=== PATIENT | male | born 1985 | race Caucasian/White ===

== ENCOUNTER → 2016-09-24 | Outpatient (REF) | payer SELFPAY ==
[2016-09-24 09:47] LABS: #IMMOTILE SPERM COUNTED 12; #MOTILE SPERM COUNTED 4; % MOTILITY 25 (> 25%); SPERM ABNORMAL FORMS WBC'S NOTED; TOTAL # SPERM COUNTED 16 M/ml
== END ==
LOC: M LAB REF 09:22
PROVIDERS: ATTEND Obstetrics & Gynecology Obstetrics
DX: N46.9 Male infertility, unspecified (principal)

== ENCOUNTER → 2016-12-03 | Outpatient (REF) | payer BC, MEDICARE ==
[2016-12-03 10:46] LABS: % NORMAL FORMS < 4 % (>=4); IMMOTILITY 96 %; NON PROGRESSIVE MOTILITY (c) 4 %; PROGRESSIVE MOTILITY (a) 0 % (>=32); SPERM# 22.6 M/Ejac (>=39); TOTAL MOTILITY 4 % (>=40); TOTAL PROGRESSIVE SPERM 0 M/Ejac.
[2016-12-03 10:47] LABS: TOTAL FUNCTIONAL 0 M/Ejac.
== END ==
LOC: M SMT 07:04
PROVIDERS: ATTEND Nurse Practitioner Women's Health
DX: N46.11 Organic oligospermia (principal)

== ENCOUNTER → 2017-04-22 | Outpatient (REF) ==
[2017-04-22 12:36] LABS: ESTRADIOL 22.6 PG/ML (<39.8)
== END ==
LOC: M LAB REF 11:28
DX: Z79.899 Other long term (current) drug therapy (principal)

== ENCOUNTER → 2017-05-17 | Outpatient (REF) | payer BC ==
[2017-05-17 17:29] LABS: SEMEN APPEARANCE OPAQUE (OPAQUE)
[2017-05-17 17:30] LABS: SEMEN VISCOSITY LIQUID (LIQUID); SEMEN VOLUME 2.3 ml (4.0-5.0); SEMEN pH 8.5 (7.0-8.0); SPERM ABNORMAL FORMS OTHER (SPECIFIY); SPERM CONCENTRATION 12.5 M/ml (>=15.0); WBC CONCENTRATION <=1 M/ml (<=1 M/ml)
[2017-05-17 17:31] LABS: IMMOTILITY 96 %; NON PROGRESSIVE MOTILITY (c) 4 %; PROGRESSIVE MOTILITY (a) 0 % (>=32); TOTAL MOTILITY 4 % (>=40)
[2017-05-17 17:32] LABS: SPERM# 28.8 M/Ejac (>=39); TOTAL FUNCTIONAL 0 M/Ejac.; TOTAL PROGRESSIVE SPERM 0 M/Ejac.
[2017-05-17 17:39] LABS: % NORMAL FORMS < 4 % (>=4)
== END ==
LOC: M LAB REF 16:36
DX: N46.9 Male infertility, unspecified (principal)
CPT/HCPCS: 89320

== ENCOUNTER → 2017-07-10 | Outpatient (CLI) | payer BC | LOC: M RAD 16:32 | DX: R76.11 Nonspecific reaction to tuberculin skin test without active tuberculosis (principal) ==

== ENCOUNTER 2017-08-27 11:06 | Inpatient (IN) | payer SELFPAY, BC ==
[2017-08-27] MEDS: NS 1,000 ML IV ×2 (12:45→20:05)
[2017-08-27] MEDS: ONDANSETRON 4MG/2ML VIAL (J2405) IV (12:47)
[2017-08-27] MEDS: MORPHINE 4 MG/ML 1ML VIAL/SYRINGE (J2270) IV ×2 (12:47→21:29)
[2017-08-27 12:49] LABS: KETONE, URINE AUTO RFX 2+ mg/dL (NEGATIVE); LEUKOCYTE ESTERASE UR AUTO RFX NEGATIVE (NEGATIVE); MUCUS, URINE RFX SMALL (NEGATIVE); NITRITE, URINE AUTO RFX NEGATIVE (NEGATIVE); RBC, URINE AUTO RFX 3 /HPF (0-3); SPECIFIC GRAVITY UR AUTO RFX 1.026 (1.002-1.035); SQUAM EPITHELIAL CELL UR AURFX 0 /HPF (0-6); WBC, URINE AUTO RFX 0 /HPF (0-3)
[2017-08-27 13:04] LABS: BASO # 0.1 10^3/uL (0.0-0.2); BASO % 0.4 % (0.0-1.0); EOS # 0.1 10^3/uL (0.0-0.50); EOS % 0.5 % (0.0-3.0); HEMATOCRIT 47.8 % (42.0-52.0); HEMOGLOBIN 17.7 g/dl (13.5-17.5); IMMATURE GRANULOCYTE % 0.5 % (0-3.0); LYMPH # 1.2 10^3/uL (1.5-4.5); LYMPH % 8.1 % (24.0-44.0); MEAN CORPUSCULAR HEMOGLOBIN 34.8 pg (27.0-33.0); MEAN CORPUSCULAR VOLUME 93.9 fl (80.0-96.0); MONO # 0.9 10^3/uL (0.0-0.8); MONO % 6.2 % (0.0-5.0); NEUTROPHILS % 84.3 % (36.0-66.0); PLATELET COUNT, AUTOMATED 220 10^3/uL (150-450); RED BLOOD COUNT 5.09 10^6/uL (4.30-6.10); RED CELL DISTRIBUTION WIDTH 13.6 % (11.5-14.5); WHITE BLOOD COUNT 14.2 10^3/uL (4.0-10.0)
[2017-08-27 13:08] LABS: INR 0.85; PROTHROMBIN TIME 11.7 SECONDS (12.4-14.5)
[2017-08-27 13:30] LABS: ALBUMIN 3.3 GM/DL (3.2-5.2); ANION GAP 12 MEQ/L (8-16); BILIRUBIN,TOTAL 1.4 MG/DL (0.2-1.0); CARBON DIOXIDE LEVEL 23 MEQ/L (21-32); CHLORIDE LEVEL 96 MEQ/L (98-107); CREATININE FOR GFR 0.86 MG/DL (0.70-1.30); GLOMERULAR FILTRATION RATE > 60.0 (>60); GLUCOSE, FASTING 307 MG/DL (70-100); POTASSIUM SERUM 3.9 MEQ/L (3.5-5.1); SODIUM LEVEL 131 MEQ/L (136-145); TROPONIN I < 0.02 NG/ML (< 0.10)
[2017-08-27] MEDS: HYDROmorphone 2 MG TAB PO (13:30)
[2017-08-27] MEDS ORDERED: ISOVUE-370 76% 100ML VIAL (Q9967) As Ordered (13:32)
[2017-08-27 13:43] LABS: CK-MB VALUE MASS < 1.0 NG/ML (<3.6)
[2017-08-27] MEDS: HYDROmorphone HCL 1 MG/ML SYRINGE (J1170) IV ×2 (13:53→16:32)
[2017-08-27 14:01] LABS: ALBUMIN/GLOBULIN RATIO 0.77 (1.00-1.93); ALKALINE PHOSPHATASE 90 U/L (45-117); ALT/SGPT 89 U/L (12-78); AMYLASE 1274 U/L (25-115); AST/SGOT 68 U/L (7-37); BILIRUBIN,DIRECT 0.1 MG/DL (0.0-0.2); BLOOD UREA NITROGEN 9 MG/DL (7-18); CALCIUM LEVEL 8.4 MG/DL (8.5-10.1); CPK CREATINE PHOSPHOKINASE 74 U/L (39-308); LIPASE 22192 U/L (73-393); MB/CK RELATIVE INDEX 1.35 (< OR =4); TOTAL PROTEIN 7.6 GM/DL (6.4-8.2)
[2017-08-27 14:22] LABS: LACTIC ACID SEPSIS PROTOCOL 0.8 MMOL/L (0.4-2.0)
[2017-08-27] MEDS ORDERED: ACETAMINOPHEN TAB 650MG DOSE (2X325MG) PO (18:45)
[2017-08-27] MEDS: PERCOCET 5MG/325MG TAB PO ×2 (18:55→23:46)
[2017-08-27] MEDS ORDERED: DEXTROSE 50% 50 ML SYRINGE IV (19:30)
[2017-08-27] MEDS ORDERED: GLUCOSE 4 GM CHEW TABLET PO (19:30)
[2017-08-27] MEDS ORDERED: GLUCAGON FOR INJ 1 MG VIAL (J1610) SC (19:30)
[2017-08-27 20:11] LABS: BEDSIDE GLUCOSE 235 MG/DL (70-105)
[2017-08-27] MEDS: HumaLOG INSULIN (NovoLOG) PER UNIT SC (21:00)
[2017-08-27] MEDS: SENOKOT S TAB PO (21:27)
[2017-08-27] MEDS: HEPARIN SOD (PORCINE) 5000 UNITS/ML VIAL SC (21:28)
[2017-08-28] MEDS: MORPHINE 4 MG/ML 1ML VIAL/SYRINGE (J2270) IV ×4 (00:43→07:35)
[2017-08-28] MEDS: NS 1,000 ML IV ×4 (01:45→20:28)
[2017-08-28 05:20] LABS: HEMATOCRIT 52.6 % (42.0-52.0); HEMOGLOBIN 18.6 g/dl (13.5-17.5); MEAN CORPUSCULAR HEMOGLOBIN 33.6 pg (27.0-33.0); MEAN CORPUSCULAR HGB CONC 35.4 g/dl (32.0-36.5); MEAN CORPUSCULAR VOLUME 95.1 fl (80.0-96.0); PLATELET COUNT, AUTOMATED 250 10^3/uL (150-450); RED BLOOD COUNT 5.53 10^6/uL (4.30-6.10); RED CELL DISTRIBUTION WIDTH 14.5 % (11.5-14.5); WHITE BLOOD COUNT 16.5 10^3/uL (4.0-10.0)
[2017-08-28] MEDS: HEPARIN SOD (PORCINE) 5000 UNITS/ML VIAL SC (05:22)
[2017-08-28 07:07] LABS: ANION GAP 13 MEQ/L (8-16); CALCIUM LEVEL 5.7 MG/DL (8.5-10.1); CARBON DIOXIDE LEVEL 17 MEQ/L (21-32); CHLORIDE LEVEL 101 MEQ/L (98-107); CHOLESTEROL RISK RATIO 16.551 (<5); CREATININE FOR GFR 0.89 MG/DL (0.70-1.30); GLOMERULAR FILTRATION RATE > 60.0 (>60); GLUCOSE, FASTING 275 MG/DL (70-100); HDL CHOLESTEROL 29 MG/DL (>40); NON-HDL-C 451 MG/DL; SODIUM LEVEL 131 MEQ/L (136-145); TRIGLYCERIDES LEVEL 3496 MG/DL (<150)
[2017-08-28 07:09] LABS: CHOLESTEROL LEVEL 480 MG/DL (<200); POTASSIUM SERUM 6.3 MEQ/L (3.5-5.1)
[2017-08-28 07:12] LABS: BLOOD UREA NITROGEN 6 MG/DL (7-18)
[2017-08-28] MEDS ORDERED: HumaLOG INSULIN (NovoLOG) PER UNIT SC (07:30)
[2017-08-28] MEDS: ONDANSETRON 4 MG TAB (S0181) PO (07:46)
[2017-08-28 08:13] LABS: IONIZED CALCIUM 3.5 MG/DL (4.5-5.3)
[2017-08-28 08:15] LABS: PHOSPHORUS LEVEL 2.4 MG/DL (2.5-4.9)
[2017-08-28] MEDS: SENOKOT S TAB PO (08:26)
[2017-08-28] MEDS: CALCIUM GLUCONATE 1,000 MG in D5W MINI-BAG PLUS 100 ML IV ×4 (08:26→18:54)
[2017-08-28] MEDS: PERCOCET 5MG/325MG TAB PO ×5 (08:27→22:54)
[2017-08-28] MEDS: HumaLOG INSULIN (NovoLOG) PER UNIT SC ×3 (08:29→17:54)
[2017-08-28 08:44] LABS: POTASSIUM SERUM 4.5 MEQ/L (3.5-5.1)
[2017-08-28 08:51] LABS: ESTIMATED AVERAGE GLUCOSE 246 MG/DL (60-110); HEMOGLOBIN A1c 10.2 %
[2017-08-28] MEDS: ATORVASTATIN 20 MG TAB PO (10:40)
[2017-08-28] MEDS: ASPIRIN 81 MG ENTERIC TAB PO (10:41)
[2017-08-28] MEDS: LOSARTAN 50 MG TAB PO (10:41)
[2017-08-28] MEDS: IMIPENEM/CILASTATIN 500 MG in D5W MINI-BAG PLUS 100 ML IV ×3 (10:41→22:43)
[2017-08-28 12:06] LABS: BEDSIDE GLUCOSE 260 MG/DL (70-105)
[2017-08-28 12:37] LABS: IONIZED CALCIUM 3.7 MG/DL (4.5-5.3)
[2017-08-28 12:47] LABS: ANION GAP 11 MEQ/L (8-16); BLOOD UREA NITROGEN 6 MG/DL (7-18); CALCIUM LEVEL 6.6 MG/DL (8.5-10.1); CARBON DIOXIDE LEVEL 17 MEQ/L (21-32); CHLORIDE LEVEL 100 MEQ/L (98-107); CREATININE FOR GFR 0.76 MG/DL (0.70-1.30); GLOMERULAR FILTRATION RATE > 60.0 (>60); GLUCOSE, FASTING 269 MG/DL (70-100); SODIUM LEVEL 128 MEQ/L (136-145)
[2017-08-28 13:28] LABS: POTASSIUM SERUM 6.6 MEQ/L (3.5-5.1)
[2017-08-28] MEDS: HEPARIN SOD (PORCINE) 5000 UNITS/ML VIAL SQ ×2 (16:13→22:43)
[2017-08-28] MEDS: ONDANSETRON 4MG/2ML VIAL (J2405) IV (17:15)
[2017-08-28 17:41] LABS: CALCIUM LEVEL 6.5 MG/DL (8.5-10.1)
[2017-08-28 17:42] LABS: BEDSIDE GLUCOSE 284 MG/DL (70-105)
[2017-08-28 17:43] LABS: POTASSIUM SERUM 5.6 MEQ/L (3.5-5.1)
[2017-08-28] MEDS ORDERED: MORPHINE 4 MG/ML 1ML VIAL/SYRINGE (J2270) IV (19:15)
[2017-08-28 23:45] LABS: BEDSIDE GLUCOSE 252 MG/DL (70-105)
[2017-08-29] MEDS: NS 1,000 ML IV ×5 (02:08→21:46)
[2017-08-29] MEDS: IMIPENEM/CILASTATIN 500 MG in D5W MINI-BAG PLUS 100 ML IV ×4 (04:10→21:45)
[2017-08-29] MEDS: PERCOCET 5MG/325MG TAB PO ×6 (04:11→23:03)
[2017-08-29 05:46] LABS: HEMATOCRIT 51.6 % (42.0-52.0); HEMOGLOBIN 17.6 g/dl (13.5-17.5); MEAN CORPUSCULAR HEMOGLOBIN 32.5 pg (27.0-33.0); MEAN CORPUSCULAR HGB CONC 34.1 g/dl (32.0-36.5); MEAN CORPUSCULAR VOLUME 95.2 fl (80.0-96.0); PLATELET COUNT, AUTOMATED 212 10^3/uL (150-450); RED BLOOD COUNT 5.42 10^6/uL (4.30-6.10); RED CELL DISTRIBUTION WIDTH 14.6 % (11.5-14.5); WHITE BLOOD COUNT 11.7 10^3/uL (4.0-10.0)
[2017-08-29 05:47] LABS: IONIZED CALCIUM 3.8 MG/DL (4.5-5.3)
[2017-08-29 06:00] LABS: INR 1.11; PROTHROMBIN TIME 14.5 SECONDS (12.4-14.5)
[2017-08-29 06:23] LABS: ALBUMIN 2.6 GM/DL (3.2-5.2); ALKALINE PHOSPHATASE 70 U/L (45-117); ANION GAP 11 MEQ/L (8-16); BILIRUBIN,TOTAL 1.3 MG/DL (0.2-1.0); BLOOD UREA NITROGEN 10 MG/DL (7-18); CALCIUM LEVEL 6.7 MG/DL (8.5-10.1); CARBON DIOXIDE LEVEL 19 MEQ/L (21-32); CHLORIDE LEVEL 105 MEQ/L (98-107); GLOMERULAR FILTRATION RATE > 60.0 (>60); GLUCOSE, FASTING 223 MG/DL (70-100); LIPASE 2901 U/L (73-393); MAGNESIUM LEVEL 2.2 MG/DL (1.8-2.4); POTASSIUM SERUM 4.1 MEQ/L (3.5-5.1); SODIUM LEVEL 135 MEQ/L (136-145); TOTAL PROTEIN 6.3 GM/DL (6.4-8.2)
[2017-08-29 06:31] LABS: BEDSIDE GLUCOSE 169 MG/DL (70-105)
[2017-08-29 06:39] LABS: ALT/SGPT 45 U/L (12-78); AST/SGOT 38 U/L (7-37)
[2017-08-29] MEDS: HumaLOG INSULIN (NovoLOG) PER UNIT SC ×5 (06:40→20:01)
[2017-08-29] MEDS: HEPARIN SOD (PORCINE) 5000 UNITS/ML VIAL SQ ×3 (06:40→21:45)
[2017-08-29] MEDS: ASPIRIN 81 MG ENTERIC TAB PO (08:25)
[2017-08-29] MEDS: CALCIUM GLUCONATE 1,000 MG in D5W MINI-BAG PLUS 100 ML IV ×2 (08:29→10:17)
[2017-08-29] MEDS: ATORVASTATIN 20 MG TAB PO (08:30)
[2017-08-29] MEDS: LOSARTAN 50 MG TAB PO (08:30)
[2017-08-29 12:08] LABS: BEDSIDE GLUCOSE 229 MG/DL (70-105)
[2017-08-29 19:59] LABS: BEDSIDE GLUCOSE 317 MG/DL (70-105)
[2017-08-30] MEDS: PERCOCET 5MG/325MG TAB PO ×4 (03:01→20:16)
[2017-08-30] MEDS: IMIPENEM/CILASTATIN 500 MG in D5W MINI-BAG PLUS 100 ML IV ×4 (03:42→21:51)
[2017-08-30] MEDS: NS 1,000 ML IV ×4 (03:43→17:43)
[2017-08-30] MEDS: HEPARIN SOD (PORCINE) 5000 UNITS/ML VIAL SQ ×3 (05:30→20:16)
[2017-08-30 07:05] LABS: BASO % 0.4 % (0.0-1.0); EOS % 0.2 % (0.0-3.0); HEMATOCRIT 43.6 % (42.0-52.0); IMMATURE GRANULOCYTE % 0.4 % (0-3.0); LYMPH # 0.7 10^3/uL (1.5-4.5); LYMPH % 8.8 % (24.0-44.0); MEAN CORPUSCULAR HEMOGLOBIN 32.4 pg (27.0-33.0); MEAN CORPUSCULAR HGB CONC 33.5 g/dl (32.0-36.5); MEAN CORPUSCULAR VOLUME 96.7 fl (80.0-96.0); MONO # 0.9 10^3/uL (0.0-0.8); MONO % 10.8 % (0.0-5.0); NEUTROPHILS # 6.7 10^3/uL (1.8-7.7); NEUTROPHILS % 79.4 % (36.0-66.0); PLATELET COUNT, AUTOMATED 193 10^3/uL (150-450); RED BLOOD COUNT 4.51 10^6/uL (4.30-6.10); RED CELL DISTRIBUTION WIDTH 14.5 % (11.5-14.5); WHITE BLOOD COUNT 8.4 10^3/uL (4.0-10.0)
[2017-08-30 07:09] LABS: HEMOGLOBIN 14.6 g/dl (13.5-17.5)
[2017-08-30 07:15] LABS: INR 1.05; PROTHROMBIN TIME 13.9 SECONDS (12.4-14.5)
[2017-08-30 07:19] LABS: IONIZED CALCIUM 4.1 MG/DL (4.5-5.3)
[2017-08-30 07:31] LABS: ALBUMIN 2.1 GM/DL (3.2-5.2); ALBUMIN/GLOBULIN RATIO 0.48 (1.00-1.93); ALKALINE PHOSPHATASE 62 U/L (45-117); ALT/SGPT 34 U/L (12-78); ANION GAP 10 MEQ/L (8-16); AST/SGOT 29 U/L (7-37); BILIRUBIN,TOTAL 0.7 MG/DL (0.2-1.0); BLOOD UREA NITROGEN 8 MG/DL (7-18); CALCIUM LEVEL 7.3 MG/DL (8.5-10.1); CARBON DIOXIDE LEVEL 20 MEQ/L (21-32); CHLORIDE LEVEL 107 MEQ/L (98-107); CHOLESTEROL LEVEL 242 MG/DL (<200); CHOLESTEROL RISK RATIO 16.133 (<5); CREATININE FOR GFR 0.64 MG/DL (0.70-1.30); GLOMERULAR FILTRATION RATE > 60.0 (>60); GLUCOSE, FASTING 185 MG/DL (70-100); HDL CHOLESTEROL 15 MG/DL (>40); LIPASE 966 U/L (73-393); MAGNESIUM LEVEL 2.2 MG/DL (1.8-2.4); NON-HDL-C 227 MG/DL; POTASSIUM SERUM 3.6 MEQ/L (3.5-5.1); SODIUM LEVEL 137 MEQ/L (136-145); TOTAL PROTEIN 6.5 GM/DL (6.4-8.2); TRIGLYCERIDES LEVEL 767 MG/DL (<150)
[2017-08-30] MEDS: ATORVASTATIN 20 MG TAB PO (08:14)
[2017-08-30] MEDS: HumaLOG INSULIN (NovoLOG) PER UNIT SC ×4 (08:14→20:14)
[2017-08-30] MEDS: ASPIRIN 81 MG ENTERIC TAB PO (08:15)
[2017-08-30] MEDS: LOSARTAN 50 MG TAB PO (08:15)
[2017-08-30] MEDS: LEVEMIR (INSULIN DETEMIR) 1 UNITS/0.01ML SC ×2 (11:05→20:15)
[2017-08-30 11:23] LABS: BEDSIDE GLUCOSE 182 MG/DL (70-105)
[2017-08-30 15:54] LABS: BEDSIDE GLUCOSE 269 MG/DL (70-105)
[2017-08-30 16:40] LABS: BEDSIDE GLUCOSE 138 MG/DL (70-105)
[2017-08-30 20:04] LABS: BEDSIDE GLUCOSE 151 MG/DL (70-105)
[2017-08-30] MEDS: SENOKOT S TAB PO (21:54)
[2017-08-31] MEDS: PERCOCET 5MG/325MG TAB PO ×5 (00:04→21:36)
[2017-08-31] MEDS: NS 1,000 ML IV ×6 (00:05→21:35)
[2017-08-31] MEDS: IMIPENEM/CILASTATIN 500 MG in D5W MINI-BAG PLUS 100 ML IV ×2 (04:07→10:24)
[2017-08-31] MEDS: HEPARIN SOD (PORCINE) 5000 UNITS/ML VIAL SQ ×3 (05:51→21:35)
[2017-08-31 06:33] LABS: HEMATOCRIT 40.6 % (42.0-52.0); HEMOGLOBIN 13.4 g/dl (13.5-17.5); MEAN CORPUSCULAR HEMOGLOBIN 31.7 pg (27.0-33.0); PLATELET COUNT, AUTOMATED 218 10^3/uL (150-450); RED BLOOD COUNT 4.23 10^6/uL (4.30-6.10); RED CELL DISTRIBUTION WIDTH 14.3 % (11.5-14.5); WHITE BLOOD COUNT 9.1 10^3/uL (4.0-10.0)
[2017-08-31 06:41] LABS: INR 1.07; PROTHROMBIN TIME 14.1 SECONDS (12.4-14.5)
[2017-08-31 06:47] LABS: ALBUMIN/GLOBULIN RATIO 0.43 (1.00-1.93); ALKALINE PHOSPHATASE 69 U/L (45-117); ALT/SGPT 22 U/L (12-78); ANION GAP 11 MEQ/L (8-16); AST/SGOT 31 U/L (7-37); BILIRUBIN,TOTAL 0.5 MG/DL (0.2-1.0); BLOOD UREA NITROGEN 5 MG/DL (7-18); CALCIUM LEVEL 7.6 MG/DL (8.5-10.1); CARBON DIOXIDE LEVEL 21 MEQ/L (21-32); CHLORIDE LEVEL 106 MEQ/L (98-107); CHOLESTEROL LEVEL 205 MG/DL (<200); CHOLESTEROL RISK RATIO 14.642 (<5); CREATININE FOR GFR 0.49 MG/DL (0.70-1.30); GLOMERULAR FILTRATION RATE > 60.0 (>60); GLUCOSE, FASTING 116 MG/DL (70-100); HDL CHOLESTEROL 14 MG/DL (>40); LIPASE 553 U/L (73-393); NON-HDL-C 191 MG/DL; POTASSIUM SERUM 3.1 MEQ/L (3.5-5.1); SODIUM LEVEL 138 MEQ/L (136-145); TOTAL PROTEIN 6.6 GM/DL (6.4-8.2); TRIGLYCERIDES LEVEL 518 MG/DL (<150)
[2017-08-31] MEDS: POTASSIUM CHLORIDE 10 MEQ SR TABLET PO ×2 (07:06→17:21)
[2017-08-31] MEDS: HumaLOG INSULIN (NovoLOG) PER UNIT SC ×4 (08:56→21:00)
[2017-08-31] MEDS: LEVEMIR (INSULIN DETEMIR) 1 UNITS/0.01ML SC ×2 (08:56→21:35)
[2017-08-31] MEDS: LOSARTAN 50 MG TAB PO (08:57)
[2017-08-31] MEDS: ASPIRIN 81 MG ENTERIC TAB PO (08:57)
[2017-08-31] MEDS: ATORVASTATIN 20 MG TAB PO (08:57)
[2017-08-31 09:39] LABS: BEDSIDE GLUCOSE 142 MG/DL (70-105)
[2017-08-31 11:29] LABS: BEDSIDE GLUCOSE 132 MG/DL (70-105)
[2017-08-31] MEDS: ACETAMINOPHEN TAB 650MG DOSE (2X325MG) PO (14:04)
[2017-08-31 16:37] LABS: BEDSIDE GLUCOSE 150 MG/DL (70-105)
[2017-08-31 20:37] LABS: BEDSIDE GLUCOSE 137 MG/DL (70-105)
[2017-09-01] MEDS: PERCOCET 5MG/325MG TAB PO ×3 (02:15→20:30)
[2017-09-01] MEDS: NS 1,000 ML IV ×2 (02:43→08:30)
[2017-09-01] MEDS: HEPARIN SOD (PORCINE) 5000 UNITS/ML VIAL SQ ×3 (05:28→20:26)
[2017-09-01 06:20] LABS: HEMATOCRIT 38.1 % (42.0-52.0); MEAN CORPUSCULAR HEMOGLOBIN 32.3 pg (27.0-33.0); MEAN CORPUSCULAR HGB CONC 34.1 g/dl (32.0-36.5); MEAN CORPUSCULAR VOLUME 94.5 fl (80.0-96.0); PLATELET COUNT, AUTOMATED 231 10^3/uL (150-450); RED BLOOD COUNT 4.03 10^6/uL (4.30-6.10); WHITE BLOOD COUNT 9.5 10^3/uL (4.0-10.0)
[2017-09-01 06:29] LABS: INR 0.93; PROTHROMBIN TIME 12.5 SECONDS (12.4-14.5)
[2017-09-01 06:35] LABS: ALBUMIN 1.9 GM/DL (3.2-5.2); ALBUMIN/GLOBULIN RATIO 0.42 (1.00-1.93); ALKALINE PHOSPHATASE 80 U/L (45-117); ALT/SGPT 21 U/L (12-78); ANION GAP 10 MEQ/L (8-16); AST/SGOT 39 U/L (7-37); BILIRUBIN,TOTAL 0.5 MG/DL (0.2-1.0); BLOOD UREA NITROGEN 5 MG/DL (7-18); CALCIUM LEVEL 7.9 MG/DL (8.5-10.1); CARBON DIOXIDE LEVEL 22 MEQ/L (21-32); CHLORIDE LEVEL 107 MEQ/L (98-107); CREATININE FOR GFR 0.42 MG/DL (0.70-1.30); GLOMERULAR FILTRATION RATE > 60.0 (>60); GLUCOSE, FASTING 137 MG/DL (70-100); LIPASE 422 U/L (73-393); MAGNESIUM LEVEL 1.8 MG/DL (1.8-2.4); POTASSIUM SERUM 2.9 MEQ/L (3.5-5.1); SODIUM LEVEL 139 MEQ/L (136-145); TOTAL PROTEIN 6.4 GM/DL (6.4-8.2)
[2017-09-01] MEDS: KCL 10MEQ/100ML SWI (KRUN) 10 MEQ in APPROPRIATE DILUENT 1 EA IV ×3 (06:52→10:24)
[2017-09-01] MEDS: POTASSIUM CHLORIDE 10 MEQ SR TABLET PO (06:52)
[2017-09-01 07:05] LABS: CHOLESTEROL LEVEL 196 MG/DL (<200); CHOLESTEROL RISK RATIO 13.066 (<5); HDL CHOLESTEROL 15 MG/DL (>40); NON-HDL-C 181 MG/DL; TRIGLYCERIDES LEVEL 375 MG/DL (<150)
[2017-09-01] MEDS: ASPIRIN 81 MG ENTERIC TAB PO (08:28)
[2017-09-01] MEDS: LOSARTAN 50 MG TAB PO (08:28)
[2017-09-01] MEDS: LEVEMIR (INSULIN DETEMIR) 1 UNITS/0.01ML SC ×2 (08:28→20:26)
[2017-09-01] MEDS: ATORVASTATIN 20 MG TAB PO (08:29)
[2017-09-01] MEDS: HumaLOG INSULIN (NovoLOG) PER UNIT SC ×4 (08:29→20:25)
[2017-09-01 11:20] LABS: BEDSIDE GLUCOSE 157 MG/DL (70-105)
[2017-09-01 16:50] LABS: BEDSIDE GLUCOSE 168 MG/DL (70-105)
[2017-09-01 20:07] LABS: BEDSIDE GLUCOSE 177 MG/DL (70-105)
[2017-09-02 06:08] LABS: HEMOGLOBIN 13.7 g/dl (13.5-17.5); MEAN CORPUSCULAR HGB CONC 34.3 g/dl (32.0-36.5); MEAN CORPUSCULAR VOLUME 93.5 fl (80.0-96.0); PLATELET COUNT, AUTOMATED 275 10^3/uL (150-450); RED BLOOD COUNT 4.28 10^6/uL (4.30-6.10); RED CELL DISTRIBUTION WIDTH 13.8 % (11.5-14.5); WHITE BLOOD COUNT 10.8 10^3/uL (4.0-10.0)
[2017-09-02] MEDS: HEPARIN SOD (PORCINE) 5000 UNITS/ML VIAL SQ ×3 (06:11→22:00)
[2017-09-02 06:20] LABS: INR 1.01; PROTHROMBIN TIME 13.4 SECONDS (12.4-14.5)
[2017-09-02 06:31] LABS: ALKALINE PHOSPHATASE 93 U/L (45-117); ALT/SGPT 24 U/L (12-78); ANION GAP 9 MEQ/L (8-16); AST/SGOT 40 U/L (7-37); BILIRUBIN,TOTAL 0.5 MG/DL (0.2-1.0); BLOOD UREA NITROGEN 5 MG/DL (7-18); CALCIUM LEVEL 8.4 MG/DL (8.5-10.1); CARBON DIOXIDE LEVEL 26 MEQ/L (21-32); CHLORIDE LEVEL 103 MEQ/L (98-107); CREATININE FOR GFR 0.59 MG/DL (0.70-1.30); GLOMERULAR FILTRATION RATE > 60.0 (>60); GLUCOSE, FASTING 164 MG/DL (70-100); LIPASE 350 U/L (73-393); POTASSIUM SERUM 2.7 MEQ/L (3.5-5.1); SODIUM LEVEL 138 MEQ/L (136-145)
[2017-09-02 07:53] LABS: CHOLESTEROL LEVEL 203 MG/DL (<200); CHOLESTEROL RISK RATIO 13.533 (<5); HDL CHOLESTEROL 15 MG/DL (>40); LDL CHOLESTEROL 118.2 MG/DL (<100); NON-HDL-C 188 MG/DL; TRIGLYCERIDES LEVEL 349 MG/DL (<150)
[2017-09-02] MEDS: POTASSIUM CHLORIDE 10 MEQ SR TABLET PO ×3 (08:04→18:21)
[2017-09-02] MEDS: ASPIRIN 81 MG ENTERIC TAB PO (08:05)
[2017-09-02] MEDS: HumaLOG INSULIN (NovoLOG) PER UNIT SC ×4 (08:05→20:28)
[2017-09-02] MEDS: KCL 10MEQ/100ML SWI (KRUN) 10 MEQ in APPROPRIATE DILUENT 1 EA IV ×5 (08:05→20:14)
[2017-09-02] MEDS: LEVEMIR (INSULIN DETEMIR) 1 UNITS/0.01ML SC ×2 (08:06→20:29)
[2017-09-02] MEDS: ATORVASTATIN 20 MG TAB PO (08:06)
[2017-09-02] MEDS: LOSARTAN 50 MG TAB PO (08:07)
[2017-09-02 11:52] LABS: BEDSIDE GLUCOSE 158 MG/DL (70-105)
[2017-09-02 17:05] LABS: BEDSIDE GLUCOSE 158 MG/DL (70-105)
[2017-09-02 17:46] LABS: POTASSIUM SERUM 3.2 MEQ/L (3.5-5.1)
[2017-09-02 20:04] LABS: BEDSIDE GLUCOSE 215 MG/DL (70-105)
[2017-09-02] MEDS: ACETAMINOPHEN TAB 650MG DOSE (2X325MG) PO (22:01)
[2017-09-03] MEDS: PERCOCET 5MG/325MG TAB PO (04:39)
[2017-09-03] MEDS: HEPARIN SOD (PORCINE) 5000 UNITS/ML VIAL SQ (05:23)
[2017-09-03 06:01] LABS: HEMATOCRIT 42.6 % (42.0-52.0); HEMOGLOBIN 14.5 g/dl (13.5-17.5); MEAN CORPUSCULAR HEMOGLOBIN 31.9 pg (27.0-33.0); MEAN CORPUSCULAR VOLUME 93.6 fl (80.0-96.0); PLATELET COUNT, AUTOMATED 303 10^3/uL (150-450); RED BLOOD COUNT 4.55 10^6/uL (4.30-6.10); RED CELL DISTRIBUTION WIDTH 13.7 % (11.5-14.5); WHITE BLOOD COUNT 12.1 10^3/uL (4.0-10.0)
[2017-09-03 06:21] LABS: INR 1.07; PROTHROMBIN TIME 14.1 SECONDS (12.4-14.5)
[2017-09-03 06:29] LABS: ALBUMIN 2.3 GM/DL (3.2-5.2); ALBUMIN/GLOBULIN RATIO 0.56 (1.00-1.93); ALKALINE PHOSPHATASE 101 U/L (45-117); ALT/SGPT 30 U/L (12-78); ANION GAP 12 MEQ/L (8-16); AST/SGOT 52 U/L (7-37); BILIRUBIN,TOTAL 0.5 MG/DL (0.2-1.0); BLOOD UREA NITROGEN 6 MG/DL (7-18); CALCIUM LEVEL 8.4 MG/DL (8.5-10.1); CARBON DIOXIDE LEVEL 26 MEQ/L (21-32); CHLORIDE LEVEL 103 MEQ/L (98-107); CHOLESTEROL LEVEL 212 MG/DL (<200); CREATININE FOR GFR 0.56 MG/DL (0.70-1.30); GLOMERULAR FILTRATION RATE > 60.0 (>60); GLUCOSE, FASTING 169 MG/DL (70-100); HDL CHOLESTEROL 17 MG/DL (>40); LDL CHOLESTEROL 124.8 MG/DL (<100); LIPASE 365 U/L (73-393); MAGNESIUM LEVEL 2.1 MG/DL (1.8-2.4); NON-HDL-C 195 MG/DL; POTASSIUM SERUM 3.4 MEQ/L (3.5-5.1); SODIUM LEVEL 141 MEQ/L (136-145); TOTAL PROTEIN 6.4 GM/DL (6.4-8.2); TRIGLYCERIDES LEVEL 351 MG/DL (<150)
[2017-09-03] MEDS: HumaLOG INSULIN (NovoLOG) PER UNIT SC ×2 (08:30→12:49)
[2017-09-03] MEDS: LEVEMIR (INSULIN DETEMIR) 1 UNITS/0.01ML SC (08:31)
[2017-09-03] MEDS: LOSARTAN 50 MG TAB PO (08:31)
[2017-09-03] MEDS: ATORVASTATIN 20 MG TAB PO (08:32)
[2017-09-03] MEDS: ASPIRIN 81 MG ENTERIC TAB PO (08:32)
[2017-09-03 11:44] LABS: BEDSIDE GLUCOSE 173 MG/DL (70-105)
[2017-09-03] MEDS: POTASSIUM CHLORIDE 10 MEQ SR TABLET PO (12:48)
== END 2017-09-03 13:55 | disposition home or self-care (01) | DRG 282 ==
LOC: M PCU 08-28 02:35 → M MSPAV 08-28 16:30 → M ED 11:06 → M PCU 08-28 18:09 → M MSPAV 08-29 14:57 → M ED INP 17:11
DX: K85.20 Alcohol induced acute pancreatitis without necrosis or infection (principal); E83.51 Hypocalcemia; I10 Essential (primary) hypertension; E87.6 Hypokalemia; E78.1 Pure hyperglyceridemia; E11.9 Type 2 diabetes mellitus without complications; Z79.84 Long term (current) use of oral hypoglycemic drugs; Z79.82 Long term (current) use of aspirin; Z91.048 Other nonmedicinal substance allergy status; Z79.899 Other long term (current) drug therapy

== ENCOUNTER 2017-11-08 09:43 | Day surgery (SDC) | payer OTHER ==
[~2017-11-08 09:43] MED LIST: LIDOCAINE 1% MDV 20ML VIAL SQ; LR 1,000 ML IV; MIDAZOLAM INJ 2 MG/2 ML VIAL (J2250) As Ordered; ROCURONIUM BROMIDE 50 MG/5 ML VIAL As Ordered; fentaNYL 100 MCG/2 ML INJECTION (J3010) As Ordered
[2017-11-08 10:21] LABS: BEDSIDE GLUCOSE 170 MG/DL (70-105)
[2017-11-08] MEDS ORDERED: HYDROmorphone HCL 2 MG/ML 1ML VIAL (J1170) As Ordered (10:55)
[2017-11-08] MEDS: BUPIVACAINE/EPIN 0.25% 30 ML VIAL As Ordered (12:07)
[2017-11-08 12:28] LABS: BEDSIDE GLUCOSE 183 MG/DL (70-105)
[2017-11-08] MEDS ORDERED: PERCOCET 5MG/325MG TAB As Ordered (12:29)
[2017-11-08] MEDS: PERCOCET 5MG/325MG TAB PO (12:30)
[2017-11-08] MEDS ORDERED: NORCO, ANEXSIA 5/325MG TABLET (HYDROcodone/ACETAMINOPHEN) PO (12:45)
[2017-11-08] MEDS ORDERED: fentaNYL 100 MCG/2 ML INJECTION (J3010) IV (12:45)
[2017-11-08] MEDS ORDERED: MEPERIDINE INJ 25 MG/ML VIAL (J2175) IV (12:45)
[2017-11-08] MEDS ORDERED: ONDANSETRON 4MG/2ML VIAL (J2405) IV (12:45)
[2017-11-08] MEDS ORDERED: LR 1,000 ML IV (12:45)
[2017-11-08] MEDS ORDERED: METOCLOPRAMIDE INJ 10MG/2ML VIAL (J2765) IV (12:45)
== END 2017-11-08 14:51 | disposition home or self-care (01) ==
LOC: M SDC 09:43
DX: K80.18 Calculus of gallbladder with other cholecystitis without obstruction (principal); K42.0 Umbilical hernia with obstruction, without gangrene; E11.9 Type 2 diabetes mellitus without complications; I10 Essential (primary) hypertension; E78.5 Hyperlipidemia, unspecified; Z79.82 Long term (current) use of aspirin; Z79.4 Long term (current) use of insulin; Z79.84 Long term (current) use of oral hypoglycemic drugs; Z79.899 Other long term (current) drug therapy
CPT/HCPCS: 47562

== ENCOUNTER → 2018-01-31 | Outpatient (REF) | payer OTHER ==
[2018-01-31 10:09] LABS: SEMEN APPEARANCE OPAQUE (OPAQUE); SEMEN VISCOSITY VISCOUS (LIQUID); SEMEN VOLUME 2.1 ML (4.0-5.0); SEMEN WBC >1 M/ml (<=1 M/ml)
[2018-01-31 10:10] LABS: #IMMOTILE SPERM COUNTED 1.5; #MOTILE SPERM COUNTED 1; % MOTILITY 40 (> 40%); SPERM CONCENTRATION 1.2 M/ml (> 15 M/ml); TOTAL # SPERM COUNTED 2.5 M/ml
== END ==
LOC: M LAB REF 09:13
DX: N46.9 Male infertility, unspecified (principal)

== ENCOUNTER → 2018-03-21 | Outpatient (REF) | payer OTHER ==
[~2018-03-21] MED LIST changes: +ASPI1TAB PO; +ATOR80TA59 PO; +BYDU1INJ SC; +FARX1TAB3 PO; +FINGMIS XX; +GLIM4TAB PO; +LANTINJ4 SC; +LEVE1INJ5 SC; -LIDOCAINE 1% MDV 20ML VIAL SQ; +LOSA100T50 PO; -LR 1,000 ML IV; +METF-877 PO; -MIDAZOLAM INJ 2 MG/2 ML VIAL (J2250) As Ordered; -ROCURONIUM BROMIDE 50 MG/5 ML VIAL As Ordered; +[UNRECOGNIZED DRUG - CODE] XX; -fentaNYL 100 MCG/2 ML INJECTION (J3010) As Ordered
[2018-03-21 15:07] LABS: SEMEN APPEARANCE OPAQUE (OPAQUE)
[2018-03-21 15:08] LABS: SEMEN VISCOSITY LIQUID (LIQUID); SPERM CONCENTRATION 14.1 M/ml (>=15.0); WBC CONCENTRATION <=1 M/ml (<=1 M/ml)
== END ==
LOC: M LAB REF 13:04
PROVIDERS: ATTEND Urology
DX: N46.9 Male infertility, unspecified (principal)

== ENCOUNTER → 2019-05-11 | Outpatient (CLI) | payer BC ==
[~2019-05-11] MED LIST changes: -ASPI1TAB PO; +ASPI81TA26 PO; -GLIM4TAB PO; +GLIM4TAB5 PO
[2019-05-11 07:35] LABS: ALBUMIN 4.1 GM/DL (3.2-5.2); ALT/SGPT 82 U/L (12-78); BILIRUBIN,DIRECT 0.1 MG/DL (0.0-0.2); BILIRUBIN,TOTAL 0.7 MG/DL (0.2-1.0); FERRITIN 443 NG/ML (26-388); IRON (FE) 91 UG/DL (65-175); PERCENT SATURATION 27.8 % (19.7-50.0); TOTAL IRON BINDING CAPACITY 327 UG/DL (250-450); TOTAL PROTEIN 7.5 GM/DL (6.4-8.2)
[2019-05-11 10:32] LABS: HEPATITIS B SURFACE ANTIBODY NEGATIVE (POSITIVE)
[2019-05-11 10:43] LABS: HEPATITIS B SURFACE ANTIGEN NEGATIVE (NEGATIVE)
[2019-05-11 11:10] LABS: HEPATITIS C VIRUS ABY INDEX < 0.0 INDEX (<0.8)
[2019-05-11 11:13] LABS: HEPATITIS A ANTIBODY IGM NEGATIVE (NEGATIVE)
[2019-05-13 08:06] LABS: ANTI-MITOCHONDRIAL ANTIBODY <20.0 Units (0.0-20.0); ANTI-SMOOTH MUSCLE ANTIBODY 8 Units (0-19); ANTINUCLEAR ANTIBODIES DIRECT Negative (Negative); CERULOPLASMIN 27.4 mg/dL (16.0-31.0); HEPATITIS A IgG TOTAL Negative (Negative); LIVER-KIDNEY MICROSOMAL ABY <20.1 Units (0.0-20.0)
== END ==
LOC: M LAB 06:08
PROVIDERS: ATTEND Internal Medicine Gastroenterology
DX: R94.5 Abnormal results of liver function studies (principal)

== ENCOUNTER 2024-06-02 14:53 | Emergency (ER) | payer OTHER ==
[~2024-06-02] VITALS: Ht 188 cm; Wt 146.1 kg
[~2024-06-02 14:53] MED LIST changes: +INSU100I6 SC; -LEVE1INJ5 SC; +LOSA100T46 PO; -LOSA100T50 PO
[2024-06-02 15:37] LABS: HEMOGLOBIN 15.9 g/dl (13.5-17.5); MEAN CORPUSCULAR HEMOGLOBIN 31.7 pg (27.0-33.0); MEAN CORPUSCULAR HGB CONC 33.8 g/dl (32.0-36.5); MEAN CORPUSCULAR VOLUME 93.6 fl (80.0-96.0); PLATELET COUNT, AUTOMATED 261 10^3/uL (150-450); RED BLOOD COUNT 5.02 10^6/uL (4.30-6.10); WHITE BLOOD COUNT 8.6 10^3/uL (4.0-10.0)
[2024-06-02 18:53] LABS: INR 0.9; PARTIAL THROMBOPLASTIN TIME 27.7 SECONDS (24.8-34.2); PROTHROMBIN TIME 12.5 SECONDS (12.5-14.5)
[2024-06-02] MEDS ORDERED: MUPI2OI TOP (19:01)
[2024-06-02] MEDS ORDERED: OXYM15SP2 (19:01)
[2024-06-02 19:17] VITALS: BP 144/85; TEMP 97.9; O2SAT 98
== END 2024-06-02 19:17 | disposition home or self-care (01) ==
LOC: M ED 14:53
DX: R04.0 Epistaxis (principal); E11.9 Type 2 diabetes mellitus without complications; I10 Essential (primary) hypertension; Z79.82 Long term (current) use of aspirin; Z79.84 Long term (current) use of oral hypoglycemic drugs; Z79.899 Other long term (current) drug therapy; Z91.89 Other specified personal risk factors, not elsewhere classified